=== PATIENT | female | born 1970 | race Caucasian/White ===

== ENCOUNTER 2017-12-07 13:36 | Inpatient (IN) | payer BC ==
[~2017-12-07] VITALS: Ht 162.6 cm; Wt 74.8 kg
--- NOTE | ~2017-12-07 | PATH ---
[facility] [address] [place] [address] PATHOLOGY RPT PROCEDURE Name: SCOTTIE YUNG Room #: 428-P [facility] IN M.R.#: [id number] Admission: 12/07/17 Date of : 70 Discharge: 12/09/17 Report #: [id number] Path Case #: [id number] [facility] Accession Number: [id number] . 01 Material submitted: . GALLBLADDER . 01 Clinical history: . Acute cholecystitis . 02 Diagnosis: Gallbladder "gallbladder cholecystectomy": - Moderate subacute and chronic cholecystitis with cholelithiasis. (SHA:[facility] 12/09/2017) QTP/12/09/2017 . 02 Electronically signed: . Nolberto Cazares MD, Pathologist NPI- [id number] . 01 Gross description: . The specimen is received in formalin, labeled "Yung, Scottie, gallbladder", is a previously opened gallbladder measuring 11.0 x 3.0 x 1.7 cm (upon reconstruction) with a correia-yellow edematous serosa. The mucosa is sloughed of showing a trabeculated correia-yellow surface. The gallbladder wall has an average 0.1 cm thickness. Within the container there are multiple multifaceted yellow-dark brown calculi measuring 4.5 x 4.0 x 1.0 cm in aggregate. Administrative Assistant Data Entry tissue is submitted in A1. (SWS; 12/08/2017) SHS/SHS . 02 Pathologist provided ICD-10: K80.12 . 02 CPT . 892074 Specimen Comment: A courtesy copy of this report has been sent to Specimen Comment: [phone], , . Specimen Comment: Report sent to ,DR ROBERTS / DR CHIANG Specimen Comment: A duplicate report has been generated due to demographic updates. Performed at: [address] [id number] MD Santiago Zambrano MD Phone: [phone] Performed at: [address] [address] PATHOLOGY RPT PROCEDURE Name: SCOTTIE YUNG Room #: 428-P DIS IN M.R.#: [id number] Admission: 12/07/17 Date of : 70 Discharge: 12/09/17 Report #: [id number] Path Case #: [id number] [address] [facility], [place], [place] [id number] MD Luann Shaikh MD Phone: [phone]
--- NOTE | ~2017-12-07 | O ---
[facility] [place] [address] OPERATIVE REPORT Name: SCOTTIE CARREON Room #: 428-P [facility] IN ..#: [id number] Admission: 12/07/17 Attend Phys: Eddie Guerra MD Discharge: Date of : 70 Report #: [id number] THIS REPORT FOR: //name// CC: Eddie Mora NP DATE OF SERVICE: 12/08/2017 SURGEON: Navneet Dunlap MD MOUNTER HAND: MARTIN Contreras. PREOPERATIVE DIAGNOSIS: 1. Acute cholecystitis. 2. Possible gallstone pancreatitis. POSTOPERATIVE DIAGNOSES: 1. Acute cholecystitis. 2. Possible gallstone pancreatitis. PROCEDURE: Laparoscopic cholecystectomy with intraoperative cholangiogram. ANESTHESIA: General endotracheal anesthesia and local anesthetic. ESTIMATED BLOOD LOSS: 10 mL. SPECIMEN: Gallbladder. COMPLICATIONS: None appreciated. INDICATIONS FOR PROCEDURE: This is a 47-year-old female patient who was initially seen at a local urgent care center with complaints of acute onset upper epigastric and right upper quadrant abdominal pain at 1:00 in the morning of her admission. Her pain awakened her from her sleep. She reports having had intermittent postprandial abdominal pain for the week leading up to her episode of pain. Her pain has been unrelenting since. CT showed pericholecystic inflammatory changes and possible free air with a followup CT confirming changes consistent with acute cholecystitis; however, no free air was present. The patient had an elevated white blood cell count of 15.7 and normal liver function tests. Her lipase was elevated. Her lipase improved to near normal today. The patient presents for laparoscopic cholecystectomy with intraoperative cholangiogram as indicated. OPERATIVE FINDINGS: Upon entrance in the abdominal cavity, free fluid was present in the right upper quadrant of the abdomen and gallbladder appeared to [facility] [address] [address] OPERATIVE REPORT Name: CARREONSCOTTIE Room #: 428-P ADM IN .R.#: [id number] Admission: 12/07/17 Attend Phys: Eddie Guerra MD Discharge: Date of : 70 Report #: [id number] be acutely inflamed with spotty areas of hemorrhagic cholecystitis. Acute adhesions to the gallbladder were present. The critical view consisting of the cystic artery, cystic duct and lower edge of the gallbladder, forming a window through which the liver was visible, was seen prior to performing the cholangiogram. The cystic duct was significantly dilated. This precluded the use of Hemoclips and an Arrow catheter was necessary to perform the cholangiogram. The cholangiogram showed no filling defects in the distal common bile duct with free flow of contrast into the duodenal sweep. After removal of the cholangiocatheter, due to the large diameter of the cystic duct, 0 PDS Endoloops x 2 were placed to secure the duct. No other significant intra-abdominal pathology was identified. At the conclusion of the operation, sponge, needle, and instrument counts were correct. Upon opening the gallbladder on the back table, numerous small to moderate sized mixed stones were present with obvious acute inflammatory changes of the gallbladder wall. DESCRIPTION OF PROCEDURE IN DETAIL: After the risks, benefits and expectations of the operation were discussed in detail with the patient, informed consent was obtained. The patient was identified in the preoperative holding area. She was given IV antibiotics as documented in the chart in line with SCIP metrics. The patient was then taken to the operating room and she was placed in the supine position. SCDs were placed on the patient's bilateral lower extremities and pneumatic compression was initiated. The patient was then given IV sedation and she was intubated without incident. Her abdomen was prepped and draped in the standard sterile fashion. A time-out was performed to identify the correct patient and procedure. Local anesthetic was infiltrated into the skin and subcutaneous tissue infraumbilically where a curvilinear incision was made with a #15 blade scalpel. Dissection was carried down to the fascia. A small fascial opening was created. The 11 mm Visiport was then placed intraperitoneally with a 0-degree angled laparoscope. Pneumoperitoneum was achieved with insufflation of carbon dioxide to 15 mmHg. A 30-degree angled laparoscope was inserted. The patient was placed in the reverse Trendelenburg position, rotated to her left. A subxiphoid 5 mm and right subcostal 5 mm ports x 2 were placed under direct visualization after local anesthetic was infiltrated into the skin and subcutaneous tissue and appropriately sized incisions were made. Operative findings are as noted above. The acute adhesions to the gallbladder were carefully taken down with blunt dissection and judicious use of the ultrasonic dissector. The gallbladder was retracted in cephalad and slightly lateral direction. The gallbladder peritoneum was then scored medially and laterally with the ultrasonic dissector. Dissection was carried out around the cystic artery and cystic duct to identify both structures as the only two structures entering the gallbladder. The cystic duct was quite dilated. A clip was not able to be placed across this. Decision was to use the Arrow catheter through a separate stab incision in the [facility] [address] [place] [address] OPERATIVE REPORT Name: SCOTTIE CARREON Room #: 428-P [facility] IN [place].#: [id number] Admission: 12/07/17 Attend Phys: Eddie Guerra MD Discharge: Date of : 70 Report #: [id number] right upper quadrant. After placing the cholangiogram, obturator and catheter, a ductotomy was created in the cystic duct. The Arrow catheter was then advanced into the cystic duct and the balloon was inflated. A cholangiogram was performed with findings as noted above. The cholangiocatheter was then removed. The duct was milked back and no stones were present within the cystic duct. The cystic duct was then transected with the ultrasonic dissector. 0 PDS Endoloops x 2 were used to completely close off the duct. The cystic artery was then divided with the ultrasound dissector with good hemostasis. The gallbladder was dissected out of the liver bed and after being detached, was placed in an Endopouch and removed through the infraumbilical port site. The abdominal cavity was then reentered. The liver bed was hemostatic and the Endoloops were secure. The abdominal cavity was copiously irrigated and suctioned until return of all drainage ran clear. No other significant intra-abdominal pathology was seen. The 11 mm port site fascial opening was closed with the Fitz-Jesse laparoscopic fascial closure device using a 0 PDS suture. The suture was tied under direct visualization to ensure no incorporation of intraabdominal content. The abdominal cavity was then desufflated and the ports were removed. Interrupted subcuticular 4-0 Monocryl sutures and Dermabond were used to close the skin incisions. The patient tolerated the procedure well. She was awakened, extubated, and taken to the recovery room in stable condition with no apparent intraoperative complications. By: [id number] Navneet Dunlap MD, FACS /nt
[2017-12-07 13:38] VITALS: BP 141/86
[2017-12-07] MEDS ORDERED: ZANAFLEX4 M2 PO (13:42)
[2017-12-07 14:04] LABS: BASOPHILS 0.1 % (0.0-2.0); EOSINOPHILS 0.8 % (0.0-3.0); HEMATOCRIT 37.9 % (37.0-47.0); HEMOGLOBIN 12.6 gm/dL (12.0-15.0); LYMPHOCYTES 7.5 % (24.0-44.0); MCH 30.2 pg (26.0-34.0); MCHC 33.3 g/dL (28.0-37.0); MCV 90.5 fL (80.0-100.0); MONOCYTES 6.6 % (1.0-8.0); PLATELET COUNT 354 thou/uL (150-400); RBC 4.19 mil/uL (4.20-5.00); RDW 13.8 % (10.5-14.5); WBC 14.1 thou/uL (4.0-11.0)
[2017-12-07 14:07] LABS: CALCIUM 9.5 mg/dL (8.5-10.1); CREATININE 0.8 mg/dL (0.6-1.0); POTASSIUM 3.5 mmol/L (3.5-5.1)
[2017-12-07 14:22] LABS: ALBUMIN 3.5 g/dL (3.4-5.0); TOTAL BILIRUBIN 0.8 mg/dL (<0.1-1.0); TOTAL PROTEIN 7.5 g/dL (6.4-8.2)
[2017-12-07 17:38] VITALS: BP 127/62
[2017-12-07 18:07] VITALS: BP 127/62
[2017-12-07 18:55] VITALS: BP 132/87
[2017-12-07 20:15] VITALS: BP 122/65
[2017-12-08 04:00] VITALS: BP 132/72
[2017-12-08 06:30] LABS: ABSOLUTE NEUTROPHILS 11.3 thou/uL (1.4-8.2); BASOPHILS 0.3 % (0.0-2.0); EOSINOPHILS 0.6 % (0.0-3.0); HEMATOCRIT 36.2 % (37.0-47.0); HEMOGLOBIN 12.6 gm/dL (12.0-15.0); LYMPHOCYTES 10.7 % (24.0-44.0); MCH 31.6 pg (26.0-34.0); MCHC 34.8 g/dL (28.0-37.0); MCV 90.8 fL (80.0-100.0); MONOCYTES 6.2 % (1.0-8.0); PLATELET COUNT 357 thou/uL (150-400); POLYS 82.2 % (36.0-66.0); RBC 3.98 mil/uL (4.20-5.00); RDW 14.2 % (10.5-14.5); WBC 13.8 thou/uL (4.0-11.0)
[2017-12-08 06:55] LABS: CALCIUM 9.3 mg/dL (8.5-10.1); CREATININE 0.9 mg/dL (0.6-1.0); POTASSIUM 3.8 mmol/L (3.5-5.1); TOTAL BILIRUBIN 1.5 mg/dL (<0.1-1.0)
[2017-12-08 07:08] VITALS: BP 134/75
[2017-12-08] MEDS ORDERED: SENNA S TABLET1 EACH PO (09:58)
[2017-12-08] MEDS ORDERED: NORCO 5-325 TA1 EACH PO (09:58)
[2017-12-08 16:00] VITALS: BP 152/69
[2017-12-08 21:00] VITALS: BP 135/81
[2017-12-09 03:40] VITALS: BP 129/72
[2017-12-09 06:01] LABS: ABSOLUTE NEUTROPHILS 10.7 thou/uL (1.4-8.2); BASOPHILS 0.1 % (0.0-2.0); HEMATOCRIT 31.5 % (37.0-47.0); LYMPHOCYTES 8.2 % (24.0-44.0); MCH 30.8 pg (26.0-34.0); MCHC 33.7 g/dL (28.0-37.0); MCV 91.3 fL (80.0-100.0); MONOCYTES 7.4 % (1.0-8.0); PLATELET COUNT 302 thou/uL (150-400); POLYS 84.3 % (36.0-66.0); RBC 3.45 mil/uL (4.20-5.00); RDW 14.4 % (10.5-14.5); WBC 12.7 thou/uL (4.0-11.0)
[2017-12-09 06:03] LABS: HEMOGLOBIN 10.6 gm/dL (12.0-15.0)
[2017-12-09 06:17] LABS: CALCIUM 8.8 mg/dL (8.5-10.1); CREATININE 0.9 mg/dL (0.6-1.0)
[2017-12-09 08:48] VITALS: BP 153/83
[2017-12-09] MEDS ORDERED: NORCO 5-325 TA1 EACH PO (09:08)
[2017-12-09] MEDS ORDERED: SENNA PLUS TAB1 EACH PO (09:09)
[2017-12-09] MEDS ORDERED: MIRALAX17 GM PO (09:09)
[2017-12-09 09:40] VITALS: BP 153/83
== END 2017-12-09 10:43 | disposition home or self-care (01) | DRG 417 ==
LOC: ER 13:36 → 4E 14:43 → EROBS 14:43 → 4E 18:08
PROVIDERS: Hospitalist; Nurse Practitioner Family; Surgery
PROC: 0FT44ZZ Resection of Gallbladder, Percutaneous Endoscopic Approach (ICD-10-PCS; principal; 2017-12-08)
PROC: BF141ZZ Fluoroscopy of Gallbladder, Bile Ducts and Pancreatic Ducts using Low Osmolar Contrast (ICD-10-PCS; principal; 2017-12-08)
DX: K80.00 Calculus of gallbladder with acute cholecystitis without obstruction (principal); K85.10 Biliary acute pancreatitis without necrosis or infection; F17.210 Nicotine dependence, cigarettes, uncomplicated; Z87.11 Personal history of peptic ulcer disease; Z87.828 Personal history of other (healed) physical injury and trauma; Z71.6 Tobacco abuse counseling; Z88.0 Allergy status to penicillin
CPT/HCPCS: 10084; 50010; 50101; 50249; 50411; 50555; 50558; 50962; 51297; 51489; 51578; 51975; 52265; 52266; 53307; 54022; 54118; 55245; 55317; 56462; 56525; 56526; 62110; 62900; 70005